=== PATIENT | female | born 1990 | race Caucasian/White ===

== ENCOUNTER 2020-12-14 15:03 | Emergency (ER) | payer BC, OTHER ==
[2020-12-14 15:15] VITALS: BP 131/90; PULSE 98; TEMP 97.8; BMI 33.6
== END 2020-12-14 15:50 | disposition home or self-care (01) ==
LOC: FER 15:03
DX: M25.512 Pain in left shoulder (principal)
CPT/HCPCS: 73030-TC-LT-FY; 99283-25